=== PATIENT | female | born 1970 | race Two or more races ===

== ENCOUNTER → 2017-03-01 | Outpatient (CLI) | payer OTHER ==
--- NOTE | ~2017-03-01 | CR281 ---
[facility] A Service of [facility] RADIOLOGY TEXT RESULTS PATIENT: SARA RODRIGUEZ LOCATION: [facility] : 74 UNIT #: [id number] AGE: [address]: DAMEON Carlson APRN SEX: F ORDER DR: [id number] [facility] [address] [place], [place] [address] [id number] O MR#: [id number] Acc #: [id number] NAME: SARA RODRIGUEZ : 1970 SEX: F STUDY DATE/TIME: 03/01/2017 13:41 UNIT: [facility] ROOM: STUDY DESCRIPTION: CR Wrist Min 3 View Lt Attending Physician: Dameon Antonio Aprn Referring Physician: Dameon Antonio Aprn Ordering Physician: Dameon Antonio Aprn Primary Care Physician: Dameon Antonio Aprn MEDICAL IMAGING REPORT This report is preliminary unless electronic signature is present EXAM 3 views of the left wrist. DATE 03/01/2017 HISTORY 46-year-old female with left wrist pain for 3 years. Patient states she broke wrist 3 years ago. COMPARISON None. FINDINGS There is signs of old healed fracture of the distal left radial metaphysis. There is an old nonunited ulnar styloid process fracture, as well. There is very mild volar angulation of the distal radial metaphysis. Radiocarpal alignment is maintained. No carpal bone fracture is identified. No acute fracture or joint dislocation is evident. No osteolytic or osteoblastic abnormalities are identified. There may be mild degenerative or post-traumatic narrowing of the radiocarpal joint. The carpocarpal spaces appear preserved, however. IMPRESSION 1. Old healed distal radial metaphyseal fracture with mild volar angulation of the fracture apex. Radiocarpal alignment is maintained. 2. 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 3. No acute findings. Note to weapons engineer insert last night with the finding. Dictated by... Mariam Casillas M.D. [facility] A Service of [facility] RADIOLOGY TEXT RESULTS PATIENT: SARA RODRIGUEZ LOCATION: [facility] : 74 UNIT #: [id number] AGE: [address]: DAMEON Carlson, CASH ROOM CLERK SEX: F ORDER DR: THIS IS AN ELECTRONICALLY VERIFIED REPORT Mariam Casillas M.D. at 03/03/2017 8:59 AM BELÉN/ishmael TD: 03/02/2017 12:15 JOB #: [id number] MEDICAL IMAGING REPORT Page 1 of 1 COPY
== END | disposition home or self-care (01) ==
LOC: CRAD 13:21
DX: M25.532 Pain in left wrist (principal)
CPT/HCPCS: 73110

== ENCOUNTER → 2017-06-01 | Outpatient (CLI) | payer OTHER ==
--- NOTE | ~2017-06-01 | US6 ---
[facility] A Service of [facility] RADIOLOGY TEXT RESULTS PATIENT: SARA RODRIGUEZ LOCATION: [facility] #: [id number] : 74 UNIT #: [id number] AGE: [address]: DAMEON Carlson, WALLY SEX: F ORDER DR: [id number] [id number] [place], [place] [address] [id number] O MR#: [id number] Acc #: [id number] NAME: SARA RODRIGUEZ : 1970 SEX: F STUDY DATE/TIME: 06/01/2017 10:39 UNIT: US ROOM: STUDY DESCRIPTION: US Abdominal Limited Ordering Physician: Dameon Antonio Aprn MEDICAL IMAGING REPORT This report is preliminary unless electronic signature is present EXAM Right quadrant ultrasound INDICATIONS Right upper quadrant abdominal pain. COMPARISON None available. FINDINGS The visualized portions of the pancreas are normal. Echogenicity and echotexture of the hepatic parenchyma is normal. No hepatic mass. The intrahepatic and extrahepatic bile ducts are normal in caliber. The gallbladder is normal. No gallstones. The right kidney measures 11 cm. Renal cortical thickness and echogenicity is normal. No hydronephrosis. No ascites. IMPRESSION Negative right upper quadrant ultrasound. Dictated by... Thaddeus Zhao M.D. THIS IS AN ELECTRONICALLY VERIFIED REPORT Thaddeus Zhao M.D. at 06/03/2017 9:47 AM [facility] A Service of [facility] RADIOLOGY TEXT RESULTS PATIENT: SARA RODRIGUEZ LOCATION: [facility] #: [id number] : 74 UNIT #: [id number] AGE: [address]: DAMEON Carlson, SHEET ROLLER OPERATOR SEX: F ORDER DR: Heather TD: 06/01/2017 23:21 JOB #: [id number] MEDICAL IMAGING REPORT Page 1 of 1 COPY
== END | disposition home or self-care (01) ==
LOC: CGUS 09:58
DX: R10.11 Right upper quadrant pain (principal)
CPT/HCPCS: 76705